=== PATIENT | female | born 1940 | race Caucasian/White ===

== ENCOUNTER → 2023-05-29 07:25 | Outpatient (REF) | payer OTHER, SELFPAY | LOC: RCS 07:25 | PROVIDERS: ATTENDING PHYSICIAN Internal Medicine Cardiovascular Disease; FAMILY PHYSICIAN Family Medicine; REFERRING PHYSICIAN Family Medicine | DX: I42.2 Other hypertrophic cardiomyopathy (principal) | CPT/HCPCS: 93306 ==

== ENCOUNTER → 2023-07-07 07:49 | Outpatient (REF) | payer OTHER, SELFPAY | LOC: RAD 07:49 | PROVIDERS: ATTENDING PHYSICIAN Internal Medicine Cardiovascular Disease; FAMILY PHYSICIAN Family Medicine; REFERRING PHYSICIAN Family Medicine | DX: I73.9 Peripheral vascular disease, unspecified (principal); M79.604 Pain in right leg | CPT/HCPCS: 93922; 93925 ==

== ENCOUNTER → 2023-08-05 06:53 | Outpatient (REF) | payer OTHER, SELFPAY | LOC: HWRAD 06:53 | PROVIDERS: ATTENDING PHYSICIAN Neurological Surgery; FAMILY PHYSICIAN Family Medicine; REFERRING PHYSICIAN Family Medicine | DX: M43.16 Spondylolisthesis, lumbar region (principal) | CPT/HCPCS: 72100 ==

== ENCOUNTER → 2023-09-04 07:25 | Outpatient (REF) | payer OTHER, SELFPAY | LOC: RAD 07:25 | PROVIDERS: ATTENDING PHYSICIAN Family Medicine; REFERRING PHYSICIAN Internal Medicine Cardiovascular Disease | DX: Z13.6 Encounter for screening for cardiovascular disorders (principal) | CPT/HCPCS: 93880 ==